=== PATIENT | female | born 1990 | race Caucasian/White ===

== ENCOUNTER 2016-05-07 07:36 | Inpatient (IN) | payer BC ==
[~2016-05-07] VITALS: Ht 167.6 cm; Wt 85.7 kg
[2016-05-07] VITALS (12 sets, daily range): BP systolic 108–134; RESP 12–24; TEMP 97–98.1; Ht 167.6 cm; Wt 85.7 kg
[~2016-05-07 07:36] MED LIST: LIDOCAINE 1% BUFFERED 1 ML SYR INTRADERM PRN
[2016-05-07] MEDS ORDERED: OXYTOCIN 10 UNITS/ML VIAL IV ONE (07:48)
[2016-05-07] MEDS ORDERED: KETOROLAC 30 MG/ML VIAL IV ONE (07:48)
[2016-05-07] MEDS ORDERED: CEFAZOLIN (LD/OB) 100 ML IV ONE (07:55)
[2016-05-07] MEDS ORDERED: METOCLOPRAMIDE 10 MG/2 ML VIAL IV PUSH ONE (07:55)
[2016-05-07] MEDS ORDERED: FAMOTIDINE 20 MG INJ IV ONE (07:55)
[2016-05-07] MEDS: LACT RINGERS 1,000 ML IV SCH ×3 (08:12→18:07)
[2016-05-07] MEDS ORDERED: MISOPROSTOL 200 MCG TAB ONE (08:52)
[2016-05-07] MEDS ORDERED: SALINE FLUSH 10 ML FLUSH PRN (10:50)
[2016-05-07] MEDS ORDERED: NALOXONE 0.4 MG/ML AMP IV PRN (10:50)
[2016-05-07] MEDS ORDERED: OXYCODONE 5 MG TAB PO PRN (10:50)
[2016-05-07] MEDS ORDERED: MORPHINE 4 MG/ML SYR IV PRN ×2 (10:50)
[2016-05-07] MEDS ORDERED: BUTORPHANOL 2 MG/ML VIAL IV PRN (10:50)
[2016-05-07] MEDS ORDERED: ONDANSETRON 4 MG VIAL IV PRN ×3 (10:50→11:30)
[2016-05-07] MEDS ORDERED: PROMETHAZINE 25 MG/ML VIAL IV PRN (10:50)
[2016-05-07] MEDS ORDERED: DIPHENHYDRAMINE 50 MG/ML VIAL IV PRN (10:50)
[2016-05-07] MEDS ORDERED: MEPERIDINE 25 MG/ML IV PRN (10:50)
[2016-05-07] MEDS ORDERED: DILAUDID 1 MG/ML AMP IV PRN (10:50)
[2016-05-07] MEDS ORDERED: MORPHINE 2 MG/ML SYR IV PRN ×2 (10:50)
[2016-05-07] MEDS ORDERED: TDaP 0.5 ML VIAL IM.VACC ONE (11:30)
[2016-05-07] MEDS ORDERED: OXYTOCIN 15 UNITS/250 ML NS 250 ML IV SCH (11:30)
[2016-05-07] MEDS ORDERED: MEASLES,MUMPS,RUBELLA VAC SUBQ.VACC ONE (11:30)
[2016-05-07] MEDS ORDERED: MAG HYDROX 30 ML UDC PO PRN (11:30)
[2016-05-07] MEDS: MISOPROSTOL 200 MCG TAB PO SCH ×2 (11:33→16:42)
[2016-05-07] MEDS: KETOROLAC 30 MG/ML VIAL IV SCH ×3 (11:38→23:58)
[2016-05-07] MEDS: SALINE FLUSH 10 ML FLUSH SCH (20:00)
[2016-05-08] MEDS: LACT RINGERS 1,000 ML IV SCH
[2016-05-08 01:56] VITALS: BP_SYST 106; RESP 16; TEMP 97.3
[2016-05-08 05:24] VITALS: BP_SYST 118; RESP 16; TEMP 97.5
[2016-05-08] MEDS: SODIUM CHLORIDE 0.9% FLUSH BAG 500 ML IV SCH (06:00)
[2016-05-08] MEDS: KETOROLAC 30 MG/ML VIAL IV SCH (06:04)
[2016-05-08] MEDS ORDERED: KETOROLAC 30 MG/ML VIAL IV SCH (08:05)
[2016-05-08] MEDS: DOCUSATE SOD 100 MG CAP PO SCH (09:01)
[2016-05-08] MEDS: SALINE FLUSH 10 ML FLUSH SCH ×2 (09:04→20:00)
[2016-05-08 09:05] VITALS: BP_SYST 115; RESP 16
[2016-05-08 09:07] VITALS: TEMP 97.9
[2016-05-08] MEDS: Ibuprofen 600 MG TAB PO SCH ×3 (11:44→23:20)
[2016-05-08 17:51] VITALS: BP_SYST 129; RESP 18; TEMP 97.9
[2016-05-08] MEDS ORDERED: NIVEA CR 56 GM TUBE TOPICAL ONE (21:45)
[2016-05-09] MEDS: SODIUM CHLORIDE 0.9% FLUSH BAG 500 ML IV SCH (05:06)
[2016-05-09 05:38] VITALS: BP_SYST 117; RESP 20; TEMP 97.2
[2016-05-09] MEDS: Ibuprofen 600 MG TAB PO SCH ×2 (05:45→11:55)
[2016-05-09] MEDS: SALINE FLUSH 10 ML FLUSH SCH (08:00)
[2016-05-09] MEDS: DOCUSATE SOD 100 MG CAP PO SCH (08:08)
[2016-05-09 09:40] VITALS: BP_SYST 119; RESP 18; TEMP 97.2
[2016-05-09 09:49] VITALS: BP_SYST 119; RESP 18; TEMP 97.2
== END 2016-05-09 12:57 | disposition home or self-care (01) | DRG 766 ==
LOC: LD 07:36 → OB 14:00
PROVIDERS: ADMIT Obstetrics & Gynecology Reproductive Endocrinology; ATTEND Obstetrics & Gynecology Reproductive Endocrinology
PROC: 10D00Z1 Extraction of Products of Conception, Low, Open Approach (ICD-10-PCS; principal; 2016-05-07)
DX: O33.9 Maternal care for disproportion, unspecified (principal); Z37.0 Single live birth; Z3A.41 41 weeks gestation of pregnancy
CPT/HCPCS: 82803; 85025